=== PATIENT | male | born 1965 | race Caucasian/White ===

== ENCOUNTER 2024-03-21 01:29 | Emergency (ER) | payer BC ==
[~2024-03-21] VITALS: Ht 170.2 cm; Wt 88.0 kg
[2024-03-21 03:16] LABS: *BILIRUBIN,URIN NEGATIVE (NEGATIVE); *BLOOD, URINE NEGATIVE (NEGATIVE); *CLARITY,URINE CLEAR (CLEAR); *COLOR,URINE YELLOW (YELLOW); *KETONES,URINE NEGATIVE (NEGATIVE); *PROTEIN,URINE 1+ (NEGATIVE); LEUKOCYTE ESTERASE ,URINE NEGATIVE (NEGATIVE); NITRITE, URINE NEGATIVE (NEGATIVE); PH,URINE 6.5 (5.0-8.0); UGLUCOSE NEGATIVE (NEGATIVE)
[2024-03-21 03:18] LABS: BASOPHILS # (AUTO) 0.1 K/UL (0.0-0.2); BASOPHILS % (AUTO) 0.7 % (0.0-2.0); EOSINOPHILS # (AUTO) 0.3 K/uL (0.0-0.7); EOSINOPHILS % (AUTO) 3.8 % (0.0-7.0); HEMATOCRIT 45.6 % (36.7-47.1); HEMOGLOBIN 15.6 g/dL (12.5-16.3); LYMPHOCYTES # (AUTO) 2.7 K/uL (0.8-4.8); LYMPHOCYTES % (AUTO) 31.5 % (20.5-51.5); MEAN CORPUSCULAR HEMOGLOBIN 31.1 uug (23.8-33.4); MEAN CORPUSCULAR HGB CONC 34 g/dL (32.5-36.3); MONOCYTES # (AUTO) 0.7 K/uL (0.1-1.30); MONOCYTES % (AUTO) 8.2 % (0.0-11.0); NEUTROPHILS # (AUTO) 4.8 K/uL (1.8-8.9); NEUTROPHILS % (AUTO) 55.8 % (38.5-71.5); PLATELET COUNT (AUTO) 198 K/uL (152-348); RED BLOOD CELL COUNT(AUTO) 5.01 MIL/uL (4.06-5.63); RED CELL DISTRIBUTION WIDTH 14.3 % (12.1-16.2); WHITE BLOOD COUNT (AUTO) 8.6 K/uL (3.6-10.2)
[2024-03-21 03:54] LABS: *AMPHETAMINE, URINE NEGATIVE (NEGATIVE); *BARBITURATE, URINE NEGATIVE (NEGATIVE); *BENZODIAZEPINE, URINE NEGATIVE (NEGATIVE); *CANNABINOID, URINE NEGATIVE (NEGATIVE); *COCCAINE, URINE NEGATIVE (NEGATIVE); *OPIATE, URINE NEGATIVE (NEGATIVE); *PHENCYCLIDINE SCREEN,URINE NEGATIVE (NEGATIVE); FENTANYL, URINE NEGATIVE (NEGATIVE)
[2024-03-21 03:55] LABS: ETHANOL < 3 MG/DL (0-10)
[2024-03-21 04:09] LABS: RBC,URINE NONE SEEN /HPF (0-3); WBC,URINE 0-3 /HPF (0-3)
[2024-03-21 04:10] LABS: BACTERIA,URINE FEW /HPF (NONE SEEN); SQUAMOUS EPITHELIAL CELL,UR NONE SEEN /HPF (NONE SEEN); URIC ACID CRYSTALS,URINE FEW /HPF (NONE SEEN)
[2024-03-21 04:39] LABS: ACETAMINOPHEN < 10.0 ug/mL (10-30); ALANINE AMINOTRANSFERASE 20 U/L (16-63); ALBUMIN 3.4 g/dL (3.4-5.0); ALKALINE PHOSPHATASE 102 U/L (50-136); ASPARTATE AMINOTRANSFERASE 19 U/L (15-37); BILIRUBIN,TOTAL 0.6 mg/dL (0.2-1.0); CALCIUM 9.1 mg/dL (8.5-10.1); CARBON DIOXIDE 29 mmol/L (21-32); CHLORIDE 104 mmol/L (98-107); CREATININE 0.9 mg/dL (0.6-1.3); GLUCOSE 101 mg/dL (74-106); POTASSIUM 3.8 mmol/L (3.5-5.1); SODIUM SERUM 140 mmol/L (136-145); UREA NITROGEN, BLOOD 17 mg/dL (7-18)
[2024-03-21] MEDS ORDERED: PARO-154 PO (06:00)
[2024-03-21 06:08] VITALS: BP 118/77; TEMP 97.8; O2SAT 98
== END 2024-03-21 06:09 | disposition home or self-care (01) ==
LOC: ER 01:45
DX: F32.A Depression, unspecified (principal); Z63.0 Problems in relationship with spouse or partner
CPT/HCPCS: 36415; 85025; A4606; A4663; G0480

== ENCOUNTER 2024-12-09 05:56 | Day surgery (SDC) | payer BC ==
[~2024-12-09 05:56] MED LIST: LIDOCAINE-MPF 2% 5 ML VIAL ONE; PARO-154 PO; PROPOFOL 200 MG/20 ML BOTTLE ONE
[2024-12-09 06:22] LABS: *BILIRUBIN,URIN NEGATIVE (NEGATIVE); *BLOOD, URINE NEGATIVE (NEGATIVE); *CLARITY,URINE CLEAR (CLEAR); *COLOR,URINE YELLOW (YELLOW); *KETONES,URINE NEGATIVE (NEGATIVE); *PROTEIN,URINE NEGATIVE (NEGATIVE); *UROBILINOGEN,URINE 0.2 E.U./dl (NORMAL); LEUKOCYTE ESTERASE ,URINE NEGATIVE (NEGATIVE); NITRITE, URINE NEGATIVE (NEGATIVE); UGLUCOSE NEGATIVE (NEGATIVE)
[2024-12-09 09:10] VITALS: BP 120/84; TEMP 97.2
== END 2024-12-09 09:15 | disposition home or self-care (01) ==
LOC: SURGERY 05:56
PROVIDERS: ATTEND Surgery
DX: Z12.11 Encounter for screening for malignant neoplasm of colon (principal); K21.9 Gastro-esophageal reflux disease without esophagitis; K44.9 Diaphragmatic hernia without obstruction or gangrene; K29.50 Unspecified chronic gastritis without bleeding; K63.89 Other specified diseases of intestine; F41.9 Anxiety disorder, unspecified; F32.9 Major depressive disorder, single episode, unspecified; Z80.0 Family history of malignant neoplasm of digestive organs; Z85.028 Personal history of other malignant neoplasm of stomach; Z86.0100 Personal history of colon polyps, unspecified; Z98.890 Other specified postprocedural states; Z79.899 Other long term (current) drug therapy
CPT/HCPCS: 43239; 45380; 71045; 81003; 88305; 88313; 88342; J3490; J7120; A4663

== ENCOUNTER 2025-01-11 22:58 | Inpatient (IN) | payer BC ==
[~2025-01-11] VITALS: Ht 170.2 cm; Wt 85.3 kg
[~2025-01-11 22:58] MED LIST changes: -LIDOCAINE-MPF 2% 5 ML VIAL ONE; -PROPOFOL 200 MG/20 ML BOTTLE ONE
[2025-01-11] MEDS ORDERED: LIDOCAINE VISCUS 2% 15 ML UDC ONE (23:14)
[2025-01-11] MEDS ORDERED: ONDANSETRON HCL 4 MG TABLET ONE (23:14)
[2025-01-11] MEDS ORDERED: MAG HYDROX/AL HYDROX/SIMETH 30 ML LIQUID UDC ONE (23:14)
[2025-01-11] MEDS ORDERED: DICYCLOMINE HCL 20 MG TABLET ONE ×2 (23:14→23:21)
[2025-01-11] MEDS ORDERED: PANTOPRAZOLE SODIUM 40 MG TABLET.DR PO ONE (23:14)
[2025-01-11 23:25] LABS: PLATELET COUNT (AUTO) 226 K/uL (152-348); RED BLOOD CELL COUNT(AUTO) 5.13 MIL/uL (4.06-5.63); RED CELL DISTRIBUTION WIDTH 13.4 % (12.1-16.2); WHITE BLOOD COUNT (AUTO) 8.5 K/uL (3.6-10.2)
[2025-01-11] MEDS: PANTOPRAZOLE SODIUM 40 MG TABLET.DR PO ONE (23:29)
[2025-01-11] MEDS: DICYCLOMINE HCL 20 MG TABLET PO STA (23:29)
[2025-01-11] MEDS: LIDOCAINE VISCUS 2% 15 ML UDC MM ONE (23:29)
[2025-01-11] MEDS: ONDANSETRON HCL 4 MG TABLET PO ONE (23:29)
[2025-01-11] MEDS: MAG HYDROX/AL HYDROX/SIMETH 30 ML LIQUID UDC PO ONE (23:29)
[2025-01-11 23:30] LABS: CREATININE 0.8 mg/dL (0.6-1.3); SODIUM SERUM 140.0 mmol/L (136-145); UREA NITROGEN, BLOOD 18.0 mg/dL (7-18)
[2025-01-11 23:36] LABS: ASPARTATE AMINOTRANSFERASE 19.0 U/L (15-37); TOTAL PROTEIN, SERUM 7.6 g/dL (6.4-8.2)
[2025-01-11] MEDS ORDERED: MORPHINE SULFATE 4 MG/1 ML DISP.SYRIN ONE (23:43)
[2025-01-11] MEDS ORDERED: ONDANSETRON 4 MG/2 ML VIAL ONE (23:43)
[2025-01-11] MEDS: ONDANSETRON 4 MG/2 ML VIAL IV ONE (23:52)
[2025-01-11] MEDS: MORPHINE SULFATE 4 MG/1 ML DISP.SYRIN IV ONE (23:52)
[2025-01-11] MEDS: IV NORMAL SALINE 500 ML BAG IV ONE (23:52)
[2025-01-12] MEDS ORDERED: SERT50TA PO (00:45)
[2025-01-12 01:00] VITALS: BP 149/90
[2025-01-12] MEDS ORDERED: TRAZ-257 PO (01:05)
[2025-01-12 01:10] VITALS: BP 135/75; TEMP 97.7; O2SAT 95
[2025-01-12] MEDS ORDERED: HYDROMORPHONE 1 MG/1 ML DISP.SYRIN ONE (01:19)
[2025-01-12] MEDS: HYDROMORPHONE 1 MG/1 ML DISP.SYRIN IV STA (01:21)
[2025-01-12] MEDS ORDERED: ONDANSETRON 4 MG/2 ML VIAL IV PRN (02:00)
[2025-01-12] MEDS ORDERED: ACETAMINOPHEN 325 MG TABLET PO PRN (02:00)
[2025-01-12] MEDS ORDERED: MORPHINE SULFATE 4 MG/1 ML DISP.SYRIN IV PRN (02:00)
[2025-01-12] MEDS: IV LACTATED RINGERS SOLUTION 1,000 ML IV PRN (03:25)
[2025-01-12] MEDS ORDERED: LORAZEPAM 2 MG/1 ML VIAL ONE (03:59)
[2025-01-12 04:00] VITALS: BP 107/63; TEMP 97.7; O2SAT 95
[2025-01-12] MEDS: PANTOPRAZOLE SODIUM 40 MG TABLET.DR PO SCH (06:37)
[2025-01-12] MEDS ORDERED: TRAZ-182 PO (09:05)
[2025-01-12 11:38] VITALS: BP 111/69; TEMP 97.4; O2SAT 99
[2025-01-12 15:47] VITALS: BP 116/74; TEMP 98.4; O2SAT 97
[2025-01-12 19:16] VITALS: BP 155/75; TEMP 99.3; O2SAT 95
[2025-01-12] MEDS: TRAZODONE 50 MG TABLET PO SCH (20:47)
[2025-01-13 04:55] VITALS: BP 109/66; TEMP 97.6; O2SAT 91
[2025-01-13 07:14] LABS: PLATELET COUNT (AUTO) 200 K/uL (152-348); RED BLOOD CELL COUNT(AUTO) 4.84 MIL/uL (4.06-5.63); RED CELL DISTRIBUTION WIDTH 13.3 % (12.1-16.2); WHITE BLOOD COUNT (AUTO) 8.3 K/uL (3.6-10.2)
[2025-01-13 07:30] LABS: ASPARTATE AMINOTRANSFERASE 21.0 U/L (15-37); CREATININE 0.7 mg/dL (0.6-1.3); SODIUM SERUM 141.0 mmol/L (136-145); TOTAL PROTEIN, SERUM 6.6 g/dL (6.4-8.2); UREA NITROGEN, BLOOD 11.0 mg/dL (7-18)
[2025-01-13] MEDS: SERTRALINE HCL 50 MG TABLET PO SCH (09:11)
[2025-01-13 11:31] VITALS: BP 114/73; TEMP 97.6; O2SAT 99
[2025-01-13] MEDS ORDERED: PANT40TA49 PO (13:13)
== END 2025-01-13 13:45 | disposition home or self-care (01) | DRG 440 ==
LOC: ER 23:04 → MEDSURG3 01-12 01:08
PROVIDERS: ADMIT Nurse Practitioner Family; ATTEND Nurse Practitioner Acute Care
DX: K85.90 Acute pancreatitis without necrosis or infection, unspecified (principal); E66.9 Obesity, unspecified; Z68.29 Body mass index [BMI] 29.0-29.9, adult
CPT/HCPCS: 36415; 83690; 83735; 84100; 85025; 86140; A4663; G0378; J1171; J2060; J2270; J2405; J7040; J7120; Q0162

== ENCOUNTER 2025-02-23 22:17 | Inpatient (IN) | payer BC ==
[~2025-02-23] VITALS: Ht 170.2 cm; Wt 88.9 kg
[~2025-02-23 22:17] MED LIST changes: +PANT40TA49 PO; -PARO-154 PO; +SERT50TA PO; +TRAZ-182 PO
[2025-02-23] MEDS ORDERED: ONDANSETRON 4 MG/2 ML VIAL ONE (23:01)
[2025-02-23 23:02] LABS: PLATELET COUNT (AUTO) 208 K/uL (152-348); RED BLOOD CELL COUNT(AUTO) 4.92 MIL/uL (4.06-5.63); RED CELL DISTRIBUTION WIDTH 13.4 % (12.1-16.2); WHITE BLOOD COUNT (AUTO) 10.1 K/uL (3.6-10.2)
[2025-02-23] MEDS ORDERED: FAMOTIDINE. 20 MG/2 ML VIAL IV ONE (23:02)
[2025-02-23] MEDS ORDERED: MORPHINE SULFATE 4 MG/1 ML DISP.SYRIN ONE (23:02)
[2025-02-23 23:08] LABS: CREATININE 0.7 mg/dL (0.6-1.3); SODIUM SERUM 140 mmol/L (136-145); UREA NITROGEN, BLOOD 25 mg/dL (7-18)
[2025-02-23] MEDS: IV NORMAL SALINE 1000 ML BAG IV ONE (23:11)
[2025-02-23] MEDS: MORPHINE SULFATE 2 MG/1 ML DISP.SYRIN IV ONE (23:12)
[2025-02-23] MEDS: FAMOTIDINE. 20 MG/2 ML VIAL IV ONE (23:12)
[2025-02-23] MEDS: ONDANSETRON 4 MG/2 ML VIAL IV ONE (23:12)
[2025-02-23 23:13] LABS: ASPARTATE AMINOTRANSFERASE 19 U/L (15-37); TOTAL PROTEIN, SERUM 6.8 g/dL (6.4-8.2)
[2025-02-23 23:28] LABS: ETHANOL < 3 MG/DL (0-10)
[2025-02-23] MEDS ORDERED: SWABABLE VALVE TRANSFER SET EA MC ONE (23:42)
[2025-02-23] MEDS ORDERED: IOHEXOL 300MG/ML 100 ML INFUS..BTL ONE (23:42)
[2025-02-23] MEDS ORDERED: IV NORMAL SALINE 250 ML IV ONE (23:44)
[2025-02-24] MEDS: IV NS 1000 ML 1,000 ML IV PRN
[2025-02-24 00:20] LABS: *BILIRUBIN,URIN NEGATIVE (NEGATIVE); *BLOOD, URINE NEGATIVE (NEGATIVE); *CLARITY,URINE CLEAR (CLEAR); *COLOR,URINE YELLOW (YELLOW); *KETONES,URINE TRACE (NEGATIVE); *PROTEIN,URINE NEGATIVE (NEGATIVE); *UROBILINOGEN,URINE 0.2 E.U./dl (NORMAL); LEUKOCYTE ESTERASE ,URINE NEGATIVE (NEGATIVE); NITRITE, URINE NEGATIVE (NEGATIVE); UGLUCOSE NEGATIVE (NEGATIVE)
[2025-02-24 00:41] LABS: SQUAMOUS EPITHELIAL CELL,UR FEW /HPF (NONE SEEN)
[2025-02-24] MEDS ORDERED: PIPERACILLIN/TAZOBACTAM/D5W 50 ML IV ONE (03:33)
[2025-02-24] MEDS: PIPERACILLIN SODIUM/TAZOBACTAM 3.375 G in IV DEXTROSE 5% 50 ML IV ONE (03:40)
[2025-02-24] MEDS ORDERED: MORPHINE SULFATE 2 MG/1 ML DISP.SYRIN IV PRN (04:15)
[2025-02-24] MEDS ORDERED: ACETAMINOPHEN 325 MG TABLET PO PRN (04:15)
[2025-02-24] MEDS ORDERED: MAGNESIUM HYDROXIDE 30 ML LIQUID UDC PO PRN (04:15)
[2025-02-24] MEDS ORDERED: ONDANSETRON 4 MG/2 ML VIAL IV PRN ×2 (04:15→14:15)
[2025-02-24] MEDS ORDERED: PIPERACILLIN SODIUM/TAZOBACTAM 3.375 G in IV DEXTROSE 5% 50 ML IV SCH (06:00)
[2025-02-24 08:28] LABS: PLATELET COUNT (AUTO) 216 K/uL (152-348); RED BLOOD CELL COUNT(AUTO) 5.04 MIL/uL (4.06-5.63); RED CELL DISTRIBUTION WIDTH 13.4 % (12.1-16.2); WHITE BLOOD COUNT (AUTO) 7.7 K/uL (3.6-10.2)
[2025-02-24 08:48] LABS: ASPARTATE AMINOTRANSFERASE 15.0 U/L (15-37); CREATININE 0.7 mg/dL (0.6-1.3); SODIUM SERUM 144.0 mmol/L (136-145); TOTAL PROTEIN, SERUM 6.9 g/dL (6.4-8.2); UREA NITROGEN, BLOOD 14.0 mg/dL (7-18)
[2025-02-24] MEDS: PANTOPRAZOLE SODIUM 40 MG VIAL IV SCH (09:20)
[2025-02-24] MEDS: PIPERACILLIN SODIUM/TAZOBACTAM 3.375 G in IV DEXTROSE 5% 100 ML IV SCH (11:02)
[2025-02-24] MEDS ORDERED: LIDOCAINE HCL 1% 20 ML VIAL ONE (11:30)
[2025-02-24] MEDS ORDERED: BUPIVACAINE/EPI PF 0.5% 10 ML VIAL ONE (11:30)
[2025-02-24 12:02] VITALS: BP 103/73; TEMP 97.9
[2025-02-24] MEDS ORDERED: SUGAMMADEX SODIUM 200 MG/2 ML VIAL IV ONE (12:18)
[2025-02-24] MEDS ORDERED: FENTANYL CITRATE 100 MCG/2 ML AMPUL ONE (12:18)
[2025-02-24] MEDS ORDERED: ROCURONIUM BROMIDE 50 MG/5 ML VIAL ONE (12:19)
[2025-02-24] MEDS ORDERED: MIDAZOLAM HCL 2 MG/2 ML VIAL ONE (12:20)
[2025-02-24] MEDS ORDERED: VECURONIUM BROMIDE 10 MG VIAL ONE (14:03)
[2025-02-24] MEDS ORDERED: LIDOCAINE-MPF 2% 5 ML VIAL ONE (14:03)
[2025-02-24] MEDS ORDERED: DEXAMETHASONE SOD PHOSPHATE 4 MG INJ ONE (14:03)
[2025-02-24] MEDS ORDERED: EPHEDRINE SULFATE 50 MG/ML AMPUL ONE (14:03)
[2025-02-24] MEDS ORDERED: KETOROLAC TROMETHAMINE 30 MG INJ ONE (14:03)
[2025-02-24] MEDS ORDERED: ONDANSETRON 4 MG/2 ML VIAL ONE (14:03)
[2025-02-24] MEDS ORDERED: PROPOFOL 200 MG/20 ML BOTTLE ONE (14:03)
[2025-02-24] MEDS ORDERED: CEFAZOLIN 1 G VIAL ONE (14:03)
[2025-02-24] MEDS ORDERED: HYDROMORPHONE 1 MG/1 ML DISP.SYRIN IV PRN (14:15)
[2025-02-24 15:13] VITALS: BP 109/74
[2025-02-24] MEDS ORDERED: MULT-225 PO (15:34)
[2025-02-24 16:00] VITALS: BP 122/72; TEMP 97.7; O2SAT 95
[2025-02-24] MEDS: OXYCODONE HCL 5 MG TABLET PO PRN ×2 (18:12→21:22)
[2025-02-24 19:23] VITALS: BP 104/55; TEMP 97.9; O2SAT 97
[2025-02-24] MEDS: ENOXAPARIN SODIUM 40 MG/0.4 ML DISP.SYRIN SQ SCH (21:00)
[2025-02-24] MEDS: TRAZODONE 50 MG TABLET PO SCH (21:21)
[2025-02-25 05:39] VITALS: BP 108/67; TEMP 97.8; O2SAT 96
[2025-02-25 07:21] LABS: PLATELET COUNT (AUTO) 222 K/uL (152-348); RED BLOOD CELL COUNT(AUTO) 5.07 MIL/uL (4.06-5.63); RED CELL DISTRIBUTION WIDTH 13.3 % (12.1-16.2); WHITE BLOOD COUNT (AUTO) 12.5 K/uL (3.6-10.2)
[2025-02-25 07:22] LABS: CREATININE 0.8 mg/dL (0.6-1.3); SODIUM SERUM 144.0 mmol/L (136-145); UREA NITROGEN, BLOOD 9.0 mg/dL (7-18)
[2025-02-25 07:51] VITALS: BP 126/82; TEMP 97.9; O2SAT 96
[2025-02-25] MEDS ORDERED: Medication Not On Formulary EA (Multivitamins (Multiple Vitamin) 1 TAB) PO SCH (09:00)
[2025-02-25] MEDS: MULTIVITAMINS,THERAPEUTIC TABLET PO SCH (10:12)
[2025-02-25] MEDS: SERTRALINE HCL 50 MG TABLET PO SCH (10:13)
[2025-02-25 11:33] VITALS: BP 127/76; TEMP 97.7; O2SAT 97
[2025-02-25 16:06] VITALS: BP 134/84; TEMP 97.7; O2SAT 98
[2025-02-25] MEDS ORDERED: CEPH500C2 PO (16:23)
[2025-02-25] MEDS ORDERED: ACET-3752 PO (16:23)
== END 2025-02-25 16:20 | disposition home or self-care (01) | DRG 418 ==
LOC: ER 22:22 → MS IN 02-24 07:29 → MEDSURG3 02-24 15:53
PROVIDERS: ADMIT Nurse Practitioner Family; ATTEND Student in an Organized Health Care Education/Training Program
PROC: 0FT44ZZ Resection of Gallbladder, Percutaneous Endoscopic Approach (ICD-10-PCS; principal; 2025-02-24 12:30)
DX: K80.00 Calculus of gallbladder with acute cholecystitis without obstruction (principal); C96.9 Malignant neoplasm of lymphoid, hematopoietic and related tissue, unspecified; F32.A Depression, unspecified; E86.0 Dehydration; Z87.19 Personal history of other diseases of the digestive system; N40.0 Benign prostatic hyperplasia without lower urinary tract symptoms; R97.20 Elevated prostate specific antigen [PSA]; Z79.899 Other long term (current) drug therapy; R79.89 Other specified abnormal findings of blood chemistry
CPT/HCPCS: 36415; 83690; 83735; 84100; 84153; 84484; 85025; A4606; A4663; G0378; G0480; J0690; J1100; J1171; J1308; J1650; J1885; J2250; J2270; J2405; J2470; J2543; J3010; J3490; J7040; Q9967